=== PATIENT | male | born 1960 | race Two or more races ===

== ENCOUNTER 2023-04-18 17:05 | Emergency (ER) | payer MEDICAID, OTHER ==
[~2023-04-18] VITALS: Ht 175.3 cm; Wt 92.3 kg
[2023-04-18] MEDS ORDERED: PROPOFOL 10 MG/ML 20 ML IV ONE ×2 (19:00→19:45)
[2023-04-18] MEDS ORDERED: HYDR-4902 PO (20:27)
[2023-04-18 20:45] VITALS: BP 162/92
== END 2023-04-18 21:11 | disposition home or self-care (01) ==
LOC: ER 17:05
DX: S43.004A Unspecified dislocation of right shoulder joint, initial encounter (principal); W01.0XXA Fall on same level from slipping, tripping and stumbling without subsequent striking against object, initial encounter; Y93.01 Activity, walking, marching and hiking; Y92.89 Other specified places as the place of occurrence of the external cause; Y99.8 Other external cause status
CPT/HCPCS: 23650; 73020; 73030; 99152; 99153; 99285; J2704